=== PATIENT | female | born 1950 | race Caucasian/White ===

== ENCOUNTER 2017-12-14 08:40 | Inpatient (IN) ==
--- NOTE | 2017-12-13 21:56 | Discharge Summary ---
<Judi Null - Last Filed: 12/13/17 21:53> Date of Encounter: 12/13/17 - Discharge Diagnosis (1) Status post total hip replacement, right Priority: Primary Status: Acute (2) Arthritis of right hip Priority: Primary Status: Acute (3) HTN (hypertension) Priority: Secondary Status: Chronic Qualifiers: Hypertension type: essential hypertension Qualified Code(s): I10 - Essential (primary) hypertension (4) Venous stasis Priority: Secondary Status: Chronic (5) History of DVT (deep vein thrombosis) Priority: Secondary Status: Chronic (6) Anticoagulant long-term use Priority: Secondary Status: Chronic Comments: Resume Xarelto. (7) Hyperlipidemia Priority: Secondary Status: Chronic Qualifiers: Hyperlipidemia type: unspecified Qualified Code(s): E78.5 - Hyperlipidemia , unspecified - Hospital Course Hospital course: Ms. Patterson is a 67 year old female - Time Spent with Patient Total time spent providing and/or coordinating discharge services: - Discharge Medications Home Medications: Calcium Carb/D3/Magnesium/Zinc [Jovi Mag Zinc + D Tablet] 1 tab PO DAILY [History] Cetirizine HCl [Zyrtec] 10 mg PO DAILY PRN 11/03/15 [History] Cholecalciferol (Vitamin D3) [Vitamin D3] 2,000 unit PO DAILY 11/03/15 [History] [place]-3/Dha/Epa/Fish Oil [Fish Oil 1,000 mg Softgel] 1 each PO DAILY 11/03/15 [ History] Omeprazole [PriLOSEC] 20 mg PO DAILY PRN 11/03/15 [History] OxyCODONE Immed Rel [Roxicodone 5 MG] 5 mg PO Q6HR PRN 7 Days #28 tablet [Rx] Rivaroxaban [Xarelto] 20 mg PO DAILY 12/14/17 [History] Allergies/Adverse Reactions: 3 Allergy/AdvReac Type Severity Reaction Status Date / Time No Known Allergies Allergy Verified 12/14/17 09:32 Primary care physician: Sai Rashid MD - Patient Status Disposition: Home, Self-Care Condition: Good - Discharge Instructions Follow Up With: Sulaimna Burks MD [Partnered Physician] - 01/11/18 5:20 pm Judi Null PAC [Physician Wood Grinder] - 12/22/17 10:45 am Sai Rashid MD [Primary Care Provider] - 01/10/18 10:15 am Additional Instructions: Discharge Instructions: Total Hip Replacement Please call [facility] ([phone]), your Primary Care Physician, or report to the Emergency Room if you have any of the following symptoms: Nausea, vomiting, fever greater that 101.5, swelling, chest pain, shortness of breath, increased pain/redness/drainage/odor for your incision site, numbness/ tingling, or any other concerning symptoms. ACTIVITY:Weight-bearing as tolerated for 8 weeks with hip dislocation precautions that physical therapy taught you. You may progress as tolerated under the guidance of your physical therapist. You do not need to sleep with a pillow between your legs. You can also seep on the operative side or on your stomach. MEDICATIONS: Upon discharge resume your home medications. Take all the medications as prescribed. Take a stool softener if taking narcotic pain medications. Stool softeners are only effective if you drink enough fluids. Drink 6-8 glass of water or fluids a day, unless this is not allowed for another health problem. Despite using stool softeners, if you haven't had a bowel movement in 3 days, please switch to a gentle laxative. Gentle laxatives are sold over the counter. You should have a bowel movement within 24 hours, if not call the office. You will be discharged from the hospital with a prescription for pain medication. You are encouraged to decrease the use of narcotic pain medication as tolerated. Should you require a refill, please call the office. [facility] prescribes narcotic pain medication for only 4-6 weeks after surgery. If you require pain medication beyond this time period, you may be referred to your Primary Care Physician or to the Pain Clinic for further evaluation. Plan ahead for refills on pain medication as many narcotics either need to be picked up at the office or mailed. It is best to call 48-72 hours in advance of needing a prescription refill so you don't run out of medication. To help control the post-operative pain, you may take NSAIDs (Aleve,Advil, Motrin, ibuprofen, naprosyn) or Tylenol as prescribed on the bottle in addition to the pain medication. ANTICOAGULATION (blood thinners): Continue your Aspirin, Lovenox or Coumadin as prescribed to help prevent a blood clot in the leg or in the lungs. As long as your incision remains dry and you tolerate the NSAIDs (Aleve, Advil, Motrin, Ibuprofen, Naprosyn), it is OK to use the NSAIDS while you are taking your anticoagulation medication. Should your incision start to drain, stop the NSAID and contact our office. Common symptoms of blood clot in the legs include: localized pain, swelling, calf tenderness, redness or discoloration of the skin. Blood clot in the lung symptoms include: shortness of breath, rapid pulse, sweating, and chest pain that worsens with deep breathing, coughing up blood, lightheadedness, feelings of anxiety. If you experience any of these symptoms notify your physician immediately, go to the emergency room, or if having trouble breathing, call 911. WOUND CARE: Leave the dressing on for 7 to 10days. You may change the dressing if it is saturated greater than 50%. Do not get the dressing wet at anytime. Wash your hands with antibacterial soap, rinse and dry prior to any wound care. If you have aditya the visiting nurse or rehab facility can remove the stapes 10-14 days after surgery and place steri-strips across the wound. Leave the steri-strips in place until they fall off on their own. You may let water from the shower run on top of the steri-strips. If you do not have a visiting nurse or rehab facility, you will need to return to the office at 10-14 days for the aditya to be removed. If you have itching or redness around the dressing call the office. FOLLOW-UP: Please follow up with your surgeon in the orthopedic clinic in 6 weeks from the day of surgery. If you have aditya that need to be removed, you will need to come back to the office in 10-14 days from the day of surgery. <Sulaiman Burks - Last Filed: 12/15/17 07:51> Orders not resulted at time of discharge: Pending orders 12/14/17 00:01 XR hip complete RT [XR] Routine H/H [Hemoglobin and Hematocrit] [HEME] Routine Date of Encounter: 12/15/17 Time of Encounter: 07:51 - Discharge Diagnosis (1) Hyperlipidemia Priority: Secondary Status: Chronic Qualifiers: Hyperlipidemia type: unspecified Qualified Code(s): E78.5 - Hyperlipidemia , unspecified (2) Antiphospholipid antibody positive Priority: Secondary Status: Chronic (3) Status post total hip replacement, right Priority: Primary Status: Acute (4) Arthritis of right hip Priority: Primary Status: Chronic (5) HTN (hypertension) Priority: Secondary Status: Chronic Qualifiers: Hypertension type: essential hypertension Qualified Code(s): I10 - Essential (primary) hypertension (6) Venous stasis Priority: Secondary Status: Chronic (7) History of DVT (deep vein thrombosis) Priority: Secondary Status: Chronic (8) Anticoagulant long-term use Priority: Secondary Status: Chronic - Hospital Course Hospital course: Ms. Patterson is a 67 year old female Status post right total hip replacement The patient had an uneventful postoperative course. They received antibiotics and physical therapy and were discharged in stable condition. There will follow -up in the office in 2 weeks. - Time Spent with Patient Total time spent providing and/or coordinating discharge services: Primary care physician: Sai Rashid MD - Patient Status Functional capacity at discharge: uses cane/walker Overall status at discharge: patient is progressing back to baseline
--- NOTE | 2017-12-14 08:09 | Anesthesia Evaluation PreOp ---
Date of Encounter: 12/14/17 Time of Encounter: 09:31 - Past History Planned Operation: Right RUTH - Robotic Cardiac History: Other (10/2017: Elevated BP with chest tightness, positive stress, negative LHC, no symptoms since. 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 ) Anesthesia History: No Prior Anesthetic Complications, Past Anesthesia Alcohol Use: occasionally Drug use: none Medications and Allergies Calcium Carb/D3/Magnesium/Zinc [Jovi Mag Zinc + D Tablet] 1 tab PO DAILY [History] Cetirizine HCl [Zyrtec] 10 mg PO DAILY PRN 11/03/15 [History] Cholecalciferol (Vitamin D3) [Vitamin D3] 2,000 unit PO DAILY 11/03/15 [History] [place]-3/Dha/Epa/Fish Oil [Fish Oil 1,000 mg Softgel] 1 each PO DAILY 11/03/15 [ History] Omeprazole [PriLOSEC] 20 mg PO DAILY PRN 11/03/15 [History] OxyCODONE Immed Rel [Roxicodone 5 MG] 5 mg PO Q6HR PRN 7 Days #28 tablet [Rx] Rivaroxaban [Xarelto] 20 mg PO DAILY 12/14/17 [History] 3 Allergy/AdvReac Type Severity Reaction Status Date / Time No Known Allergies Allergy Verified 12/14/17 09:32 - Meds/Allergy Pre-op Review Medications Reviewed: Yes Allergies Reviewed: Yes Beta Blockers on Current Med List: No Anesthesia Results - Labs Laboratory Tests 12/07/17 12/07/17 12/07/17 10:10 10:10 10:10 Hgb 14.6 Hct 44.9 Plt Count 219 PT 19.1 H INR 1.8 APTT 39.4 H Sodium 136 Potassium 4.4 Carbon Dioxide 25 BUN 17 Creatinine 0.89 - Imaging EKG: report reviewed (SINUS RHYTHM LOW QRS VOLTAGE IN PRECORDIAL LEADS SEPTAL MYOCARDIAL INFARCTION, PROBABLY OLD) Additional studies: LE venous duplex 09/2017: Acute deep venous thrombosis is present in the left superficial femoral, popliteal, posterior tibial and peroneal veins. Acute superficial venous thrombosis is present in the left lesser saphenous vein. Normal contralateral common femoral vein. Treadmill stress test 10/2015: Perfusion imaging was positive for ischemia. There is a small (mild) size, mildly intense anteroapical reversible defect consistent with ischemia. Patient had chest pain with stress. Gated EF = 70%. The LV is not dilated. There is no evidence of TID. Exercise ECG was negative for ischemia. Exercise capacity was average. No arrhythmias noted with stress. [facility] 10/2015: Impressions: There is mild coronary artery disease. The left ventricle is normal and has normal contractility EF 55% Recommendations: Optimal medical therapy of patient's disease. Aggressive risk factor modification. Coronary Dominance: Right Lesion Findings/Interventions * Left Main Coronary Artery The LMCA is angiographically free of disease. * Left Anterior Descending There is a 20% stenosis in the Mid LAD. * Circumflex The Circumflex is angiographically free of disease and small in size. The 1st Marginal is angiographically free of disease. * Ramus The Ramus is angiographically free of disease. * Right Coronary Artery There is a 20% stenosis in the Mid RCA. The Right PDA is large in size. Anesthesia Exam O2 Sat Height 1.7 m Weight 86.183 kg BMI 30 Vital Signs Temp Pulse Resp BP Pulse Ox 97.8 F 85 18 136/91 96 12/14/17 08:57 12/14/17 08:57 12/14/17 08:57 12/14/17 08:57 12/14/17 08:57 NPO (# of Hours): >8 - HEENT Mallampati: I Teeth: Normal - Cardiac Rhythm: Regular - Pulmonary Breath Sounds: bilateral Clear Anesthesia Assess/Plan ASA Score: 2 Modified Idalmis Scale for Level of Consciousness: Cooperative, oriented, and tranquil Anesthetic Plan: General Monitoring Plan: Standard Monitors, A-Line (Possible) Recovery Plan: PACU Anes Supervising Prov Stmt: Patient informed and consented. Risks, benefits, and alternatives discussed. Patient wishes to proceed.
[2017-12-14] MEDS ORDERED: CeFAZolin Syr 2,000MG/20 ML 2,000 MG/20 ML SYRINGE IVPB ONE (08:53)
--- NOTE | 2017-12-14 09:05 | History & Physical Report ---
Date of Encounter: 12/14/17 Time of Encounter: 09:05 24 Hour HP Update - Instructions Instructions: If the History and Physical is less than 30 days old and was completed prior to A.M. admission and or procedure and has NOT been updated on calendar day of procedure please complete this update prior to performing procedure. - Update Patient reports changes in Medical Condition: No Changes in examination, assessment, or condition: No Changes in Medication: No Preop tests/diagnostics Reviewed: Yes Surgery Remains Indicated: Yes Consent for Planned Operative Procedure(s) Verified: Yes - Pre-Operative Checklist Preoperative Checklist Indicated: No Prophylactic Antibiotic Ordered: Yes Is VTE Prophylaxis Indicated?: Yes
[2017-12-14] MEDS ORDERED: Lidocaine -MPF 1% 2 ML VIAL ONE (09:24)
[2017-12-14] MEDS ORDERED: *HR* FentaNYL (PF) 100 MCG/2 ML VIAL ONE ×2 (09:32→10:29)
[2017-12-14] MEDS ORDERED: *HR* Propofol 200 MG/20 ML VIAL IVP ONE (09:32)
[2017-12-14] MEDS ORDERED: *HR* Methadone 10 MG TABLET PO ONE (09:39)
[2017-12-14] MEDS ORDERED: Famotidine 20 MG/2 ML VIAL IVP ONE (09:39)
[2017-12-14] MEDS ORDERED: Pregabalin 75 MG CAPSULE PO ONE (09:39)
[2017-12-14] MEDS ORDERED: *HR* Succinylcholine 200 MG/10 ML VIAL IVP ONE (09:53)
[2017-12-14] MEDS ORDERED: Lidocaine -MPF 2% 2 ML VIAL ONE (09:53)
[2017-12-14] MEDS: Ringers Solution, Lactated 1,000 ML IVC SCH ×3 (09:58→14:53)
[2017-12-14] MEDS ORDERED: Ethanol\\Acetic Acid\\Na Ace\\Ben 1,000 ML IRRIG.SOLN IR ONE (10:23)
[2017-12-14] MEDS ORDERED: Acetaminophen IV 1,000 MG/100 ML INFUS..BTL ONE (10:27)
[2017-12-14] MEDS ORDERED: *HR* OxyCODONE Immed Rel 5 MG TABLET PO PRN ×2 (10:32→13:24)
[2017-12-14] MEDS ORDERED: *HR* HYDROmorphone 2 MG TABLET PO PRN (10:32)
[2017-12-14] MEDS ORDERED: *HR* HYDROmorphone (PF) 1 MG/ML SYRINGE IVP PRN (10:32)
[2017-12-14] MEDS ORDERED: Ondansetron 4 MG/2 ML VIAL IVP ONE (10:32)
[2017-12-14] MEDS ORDERED: MORPHINE SUL Oral CONC 10 MG/0.5 ML ORAL.SYG SL PRN (10:32)
[2017-12-14] MEDS ORDERED: Lidocaine -MPF 4% 5 ML AMPUL ONE (10:36)
[2017-12-14] MEDS ORDERED: EPHEDrine 50 MG/ML VIAL ONE (11:10)
[2017-12-14] MEDS ORDERED: Dexamethasone 4 MG/ML VIAL ONE (11:17)
[2017-12-14] MEDS ORDERED: Ondansetron 4 MG/2 ML VIAL ONE (11:17)
--- NOTE | 2017-12-14 11:55 | Orthopedic Operative Note ---
Date of procedure: 12/14/17 Pre-op diagnosis: right hip arthritis Post-op diagnosis: same Procedure: Procedure: right Total Hip Replacment robotic-assisted Estimated blood loss: 200 cc Hardware: Metal and polyethylene replacement. Raad DM Cup: 58 cup Femoral 8 size stem Head:+4 head with Julieta Procedural Notes: Grade 4 arthritic changes femoral head acetabular socket, procedure performed with robotic assistance. Equal leg lengths as measured by CT Operative procedure: The patient was brought to the operating room and placed on the operating room table. After general anesthesia was administered the patient was placed in the lateral decubitus position with the operative leg up. All pressure points were padded appropriately and the head was stabilized in the neutral position. The operative extremity was prepped and draped in the sterile surgical fashion patient received IV antibiotic prior to skin incision. 3 Steinmann pins were placed in the iliac crest 3 cm proximal to the anterior superior iliac spine this was for the robotic-assisted sensor. This was done through a small 2 cm incision. A standard posterior approach is made to the operative hip, the incision was made through the skin and subcutaneous tissue hemostasis was obtained with Bovie cautery. Using careful sharp dissection the fascia was identified and incised exposing the external rotators. The femoral checkpoint was placed leg length was measured at this time utilizing robotic assistance. The external rotators were released off the greater trochanter and tagged with # 2 FiberWire suture. The capsule was T'd open and the hip was brought into internal rotation. Patient noted to have grade 4 arthritic changes femoral head. The femoral neck cut was made at the appropriate level roughly 10 mm proximal to the lesser trochanter aced on preoperative templating. An anterior capsulotomy was performed for the anterior retractor. Soft tissues removed from the acetabulum. Patient noted to have grade 4 arthritic changes acetabulum. The acetabulum checkpoint was placed confirmed. The acetabulum was then mapped with robotic assistance. Based on the preoperative plan the acetabulum was reamed in one step with a 57 reamer. The 58 acetabulum was impacted with robotic assistance and 40 degrees of abduction and 20 degrees of anteversion. The hip was brought back in to internal rotation and prepared with the steam box operator followed by the canal finder followed by the reaming process to a size 8/ 9 broaching process in 20 degrees anteversion. It was broached up to the appropriate size 8. Trial reduction revealed leg lengths close to normal. The femoral implant was impacted in place in 20 degrees of anteversion. Trial reduction found the hip to be stable with 8 head and Julieta. The trials were removed and the real implants were impacted in place. The hip was reduced, patient had robotic confirmed leg length of 8 mm longer than the contralateral side. The hip had excellent stability with forward flexion to 90 degrees adduction of 30 degrees and internal rotation of 60 degrees. The hip had no shuck. The hips after 2 minutes with a antibacterial solution. It was irrigated out with 2 L of pulse irrigation. The checkpoints were removed, Steinmann pins were removed. The hip was closed by the PA. The deep tissue was irrigated and closed deep with #1 PDS suture superficially with 0 PDS suture and skin was closed with Dermabond and zip tie. The patient was placed in a sterile dressing and abduction pillow. The patient was extubated and transferred to the recovery room in stable condition. Anesthesia: GETA Surgeon: Sulamian Burks Was there an assistant merchandiser present: Yes Patient Support Tech: Judi Null Estimated blood loss (cc): 200 Condition: stable Disposition: PACU
--- NOTE | 2017-12-14 12:49 | Anesthesia Evaluation Post Op ---
Date of Encounter: 12/14/17 Time of Encounter: 12:49 - Vital Signs Vital Signs: Vital Signs/O2 Sat, Most Current Temp Pulse Resp BP Pulse Ox 97.7 F 91 14 130/76 94 12/14/17 12:15 12/14/17 12:35 12/14/17 12:35 12/14/17 12:35 12/14/17 12:35 - Lungs Lungs: Clear Ascult./Percussion - Airway Airway: Non-obstructed - Cardiovascular Regular Rate - Mental Status Mental Status: Asleep with brisk response to light stimulation - Pain Pain Scale: 4 Pain Scale used: Numeric (1 - 10) - Nausea Vomiting Nausea Vomiting: Not Present - Hydration Hydration: Ice chips, Has not voided - Discharge PostOp Status: Transfer Patient to floor
[2017-12-14 12:55] LABS: Hematocrit 38.5 % (35.3-44.9)
[2017-12-14 12:56] LABS: Hemoglobin 12.9 g/dL (11.5-15.4)
[2017-12-14] MEDS ORDERED: Sennosides 8.6 MG TABLET PO PRN (13:24)
[2017-12-14] MEDS ORDERED: MOM Conc 10 ML UD.LIQ PO PRN (13:24)
[2017-12-14] MEDS ORDERED: traMADol 50 MG TABLET PO PRN (13:24)
[2017-12-14] MEDS ORDERED: Ondansetron 4 MG/2 ML VIAL IVP PRN (13:24)
[2017-12-14] MEDS ORDERED: Loratadine 10 MG TABLET PO PRN (13:24)
[2017-12-14] MEDS ORDERED: Temazepam 15 MG CAPSULE PO PRN (13:24)
[2017-12-14] MEDS ORDERED: *HR* OxyCODONE/APAP 5/325 TABLET PO PRN (13:24)
[2017-12-14] MEDS ORDERED: Naloxone 0.4 MG/ML INJ IVP PRN (13:24)
[2017-12-14] MEDS: Multivit/Ca/Min/Fe/FA 1 TAB TABLET PO SCH (14:53)
[2017-12-14] MEDS: ceFAZolin 2,000 MG in 0.9 % Sodium Chloride 100 ML IVPB SCH (15:51)
[2017-12-14] MEDS: Ascorbic Acid 500 MG TABLET PO SCH (15:52)
[2017-12-14] MEDS ORDERED: CeFAZolin Pre 2,000 MG/100 ML 2,000 MG/100 ML BAG IVPB SCH (16:00)
[2017-12-14] MEDS ORDERED: *HR* Rivaroxaban 10 MG TABLET PO ONE (16:28)
[2017-12-14] MEDS ORDERED: *HR* Promethazine 25 MG/ML VIAL IVP PRN (17:27)
[2017-12-15] MEDS: ceFAZolin 2,000 MG in 0.9 % Sodium Chloride 100 ML IVPB SCH (01:13)
[2017-12-15 03:01] LABS: Hematocrit 33.5 % (35.3-44.9)
[2017-12-15 03:07] LABS: Hemoglobin 11.1 g/dL (11.5-15.4)
[2017-12-15 03:21] LABS: BUN/Creatinine Ratio 26 (6-26); Blood Urea Nitrogen 21 mg/dL (8-23); Calcium 8.6 mg/dL (8.6-10.3); Carbon Dioxide 24 mEq/L (23-29); Chloride 103 mEq/L (98-107); Glucose 159 mg/dL (70-105); Osmolality,Calculated 286 (280-300); Sodium 135 mEq/L (136-145); eGFR For African Americans > 60 (> 60); eGFR For Non-African Americans > 60 (> 60)
[2017-12-15] MEDS: Ringers Solution, Lactated 1,000 ML IVC SCH (03:21)
[2017-12-15 06:51] VITALS: BP 98/57
--- NOTE | 2017-12-15 07:52 | Orthopedics Progress Note ---
Date of Encounter: 12/15/17 Time of Encounter: 07:52 - Assessment and Plan (1) Hyperlipidemia Current Visit: No Status: Chronic Qualifiers: Hyperlipidemia type: unspecified Qualified Code(s): E78.5 - Hyperlipidemia , unspecified (2) Antiphospholipid antibody positive Current Visit: No Status: Chronic (3) Status post total hip replacement, right Current Visit: No Status: Acute (4) Arthritis of right hip Current Visit: No Status: Chronic (5) HTN (hypertension) Current Visit: No Status: Chronic Qualifiers: Hypertension type: essential hypertension Qualified Code(s): I10 - Essential (primary) hypertension (6) Venous stasis Current Visit: No Status: Chronic (7) History of DVT (deep vein thrombosis) Current Visit: No Status: Chronic (8) Anticoagulant long-term use Current Visit: No Status: Chronic Subjective Interval history: Patient was seen this morning doing well without complaints. Afebrile vital signs stable. Operative extremity: Neurovascularly intact Dressing clean dry and intact Calves nontender Assessment and plan: Continue with postoperative care Hematocrit 33 discharged today Objective Vital signs: Vital Signs Temp Pulse Resp BP Pulse Ox 12/15/17 06:51 97.8 F 68 16 98/57 99 12/15/17 05:26 97.6 F 62 16 92/59 99 12/15/17 00:27 63 16 95/62 99 12/14/17 21:06 97.5 F L 63 16 106/69 98 12/14/17 21:00 98 12/14/17 15:52 97.6 F 70 16 104/71 100 12/14/17 14:47 97.6 F 62 14 105/68 99 12/14/17 14:15 97.6 F 73 12 109/69 100 12/14/17 13:35 97.7 F 88 12 112/73 98 12/14/17 13:15 97.9 F 74 16 118/73 98 12/14/17 13:05 78 14 117/76 98 12/14/17 12:55 84 12 123/70 95 12/14/17 12:45 97.2 F L 86 14 120/69 97 12/14/17 12:35 91 14 130/76 94 12/14/17 12:25 82 16 138/78 97 12/14/17 12:15 97.7 F 91 18 144/90 98 12/14/17 08:57 97.8 F 85 18 136/91 96 Intake and Output 12/14/17 12/14/17 12/15/17 15:59 23:59 07:59 Intake Total 850 / 850 100 / 100 1000 / 1000 Output Total 200 / 200 300 / 300 Balance 650 / 650 100 / 100 700 / 700 Intake: IV Fluids 850 / 850 100 / 100 1000 / 1000 Lactated Ringers 1,000 ML @ 75 850 / 850 1000 / 1000 mls/hr IVC .[id number] RANJAN Rx#: [id number] Ancef 2,000 MG In 0.9 % Sodium 100 / 100 Chloride 100 ML @ 200 mls/hr IVPB Q8H RANJAN Rx#:[id number] Output: Urine 300 / 300 Estimated Blood Loss 200 / 200 Other: # Voids 1 1 Weight 86.183 kg 94 kg Patient Weight 12/15/17 23:59 Weight 94 kg - Labs CBC & BMP: 12/15/17 00:59 12/15/17 00:59 Labs: Abnormal lab results Hgb 11.1 g/dL (11.5-15.4) L D 12/15/17 00:59 Hct 33.5 % (35.3-44.9) L 12/15/17 00:59 Sodium 135 mEq/L (136-145) L 12/15/17 00:59 Glucose 159 mg/dL (70-105) H 12/15/17 00:59 - VTE Documentation of Mechanical Device: Venous foot pump, device Consult Discharge Plan - Plan Additional Instructions: Discharge Instructions: Total Hip Replacement Please call [facility] ([phone]), your Primary Care Physician, or report to the Emergency Room if you have any of the following symptoms: Nausea, vomiting, fever greater that 101.5, swelling, chest pain, shortness of breath, increased pain/redness/drainage/odor for your incision site, numbness/ tingling, or any other concerning symptoms. ACTIVITY:Weight-bearing as tolerated for 8 weeks with hip dislocation precautions that physical therapy taught you. You may progress as tolerated under the guidance of your physical therapist. You do not need to sleep with a pillow between your legs. You can also seep on the operative side or on your stomach. MEDICATIONS: Upon discharge resume your home medications. Take all the medications as prescribed. Take a stool softener if taking narcotic pain medications. Stool softeners are only effective if you drink enough fluids. Drink 6-8 glass of water or fluids a day, unless this is not allowed for another health problem. Despite using stool softeners, if you haven't had a bowel movement in 3 days, please switch to a gentle laxative. Gentle laxatives are sold over the counter. You should have a bowel movement within 24 hours, if not call the office. You will be discharged from the hospital with a prescription for pain medication. You are encouraged to decrease the use of narcotic pain medication as tolerated. Should you require a refill, please call the office. [facility] prescribes narcotic pain medication for only 4-6 weeks after surgery. If you require pain medication beyond this time period, you may be referred to your Primary Care Physician or to the Pain Clinic for further evaluation. Plan ahead for refills on pain medication as many narcotics either need to be picked up at the office or mailed. It is best to call 48-72 hours in advance of needing a prescription refill so you don't run out of medication. To help control the post-operative pain, you may take NSAIDs (Aleve,Advil, Motrin, ibuprofen, naprosyn) or Tylenol as prescribed on the bottle in addition to the pain medication. ANTICOAGULATION (blood thinners): Continue your Aspirin, Lovenox or Coumadin as prescribed to help prevent a blood clot in the leg or in the lungs. As long as your incision remains dry and you tolerate the NSAIDs (Aleve, Advil, Motrin, Ibuprofen, Naprosyn), it is OK to use the NSAIDS while you are taking your anticoagulation medication. Should your incision start to drain, stop the NSAID and contact our office. Common symptoms of blood clot in the legs include: localized pain, swelling, calf tenderness, redness or discoloration of the skin. Blood clot in the lung symptoms include: shortness of breath, rapid pulse, sweating, and chest pain that worsens with deep breathing, coughing up blood, lightheadedness, feelings of anxiety. If you experience any of these symptoms notify your physician immediately, go to the emergency room, or if having trouble breathing, call 911. WOUND CARE: Leave the dressing on for 7 to 10days. You may change the dressing if it is saturated greater than 50%. Do not get the dressing wet at anytime. Wash your hands with antibacterial soap, rinse and dry prior to any wound care. If you have aditya the visiting nurse or rehab facility can remove the stapes 10-14 days after surgery and place steri-strips across the wound. Leave the steri-strips in place until they fall off on their own. You may let water from the shower run on top of the steri-strips. If you do not have a visiting nurse or rehab facility, you will need to return to the office at 10-14 days for the aditya to be removed. If you have itching or redness around the dressing call the office. FOLLOW-UP: Please follow up with your surgeon in the orthopedic clinic in 6 weeks from the day of surgery. If you have aditya that need to be removed, you will need to come back to the office in 10-14 days from the day of surgery. Referrals: Sulaiman Burks MD [Partnered Physician] - 01/11/18 5:20 pm Judi Null PAC [Physician Dining Service Inspector] - 12/22/17 10:45 am Sai Rashid MD [Primary Care Provider] - 01/10/18 10:15 am
[2017-12-15] MEDS ORDERED: ZINC PO SCH (09:00)
[2017-12-15] MEDS ORDERED: Cholecalciferol (D-3) 1,000 UNIT TABLET PO SCH (09:00)
[2017-12-15] MEDS ORDERED: D3 PO SCH (09:00)
[2017-12-15] MEDS ORDERED: MAGNESIUM PO SCH (09:00)
[2017-12-15] MEDS ORDERED: CALCIUM CARB PO SCH (09:00)
[2017-12-15] MEDS ORDERED: (Omega-3/Dha/Epa/Fish Oil [Fish Oil 1,000 Mg Softgel] PO SCH (09:00)
[2017-12-15] MEDS: Ascorbic Acid 500 MG TABLET PO SCH (09:34)
[2017-12-15] MEDS: Multivit/Ca/Min/Fe/FA 1 TAB TABLET PO SCH (09:35)
--- NOTE | 2017-12-15 16:22 | Event Note ---
Date of Encounter: 12/15/17 Time of Encounter: 16:20 PCR - POD#1 - Right THR Patient seen at bedside. Labs reviewed. Stable Pain control: adequate - changed to Ultram Participating in PT at home All questions and concerns addressed. Educated on use of incentive spirometer. Encouraged ambulation and proper hydration. Patient educated on post-operative restrictions and post-operative care. Addressed: Home with - continuity placed.
--- NOTE | 2017-12-15 16:23 | Physician Discharge Referral ---
Home Health/Hosp Referral Info Transfer to: Home Health Attending Provider: Provider in Charge Post Discharge: PCP - Diagnosis (1) Status post total hip replacement, right Status: Acute (2) Arthritis of right hip Status: Chronic (3) HTN (hypertension) Status: Chronic (4) Venous stasis Status: Chronic (5) History of DVT (deep vein thrombosis) Status: Chronic (6) Anticoagulant long-term use Status: Chronic (7) Hyperlipidemia Status: Chronic - Respiratory Orders None Smoking Cessation: Smoking cessation has been advised. For more information, call the [place] Tobacco Quit Line at 1-977-AUXN-NOW. - Diet/Nutrition Diet/Nutrition Orders: Regular - Activity Activity Orders: Up ad pinky, Ambulate, Chair, Walker - Services Needed Following services are medically necessary services: Nursing, Home Health Aide, Physical Therapy, Occupational Therapy Home Care Orders: Opsite dressing, leave intact until first post-operative visit. If dressing becomes >50% saturated, contact office, remove dressing and place appropriate dressing in its place. Do not allow for dressing to get wet. Zipline/[place] in place, plan to remove at post-operative day #14-16. Total Joint Precautions x 6 weeks Apply cold therapy wrap 3-6x/day for 20 minutes at a time. Encourage ambulation throughout the day Use Incentive spirometer 10x/hour. Elevate affected extremity above heart as tolerated. Brace: Wear hip abductor brace at night x 6 weeks.~ - Transfer Medications Home Medications: Calcium Carb/D3/Magnesium/Zinc [Jovi Mag Zinc + D Tablet] 1 tab PO DAILY [History] Cetirizine HCl [Zyrtec] 10 mg PO DAILY PRN 11/03/15 [History] Cholecalciferol (Vitamin D3) [Vitamin D3] 2,000 unit PO DAILY 11/03/15 [History] Lucas-3/Dha/Epa/Fish Oil [Fish Oil 1,000 mg Softgel] 1 each PO DAILY 11/03/15 [ History] Omeprazole [PriLOSEC] 20 mg PO DAILY PRN 11/03/15 [History] OxyCODONE Immed Rel [Roxicodone 5 MG] 5 mg PO Q6HR PRN 7 Days #28 tablet [Rx] Rivaroxaban [Xarelto] 20 mg PO DAILY 12/14/17 [History] Allergies/Adverse Reactions: 3 Allergy/AdvReac Type Severity Reaction Status Date / Time No Known Allergies Allergy Verified 12/14/17 09:32 Certification: Further, I certify that my clinical findings support that this patient is homebound (i.e. absences from home require considerable and taxing effort and are for medical reasons or amish services or infrequently or short duration when for other reasons) because: Homebound Reason: Post-surgery restriction and or conditions limit ability to leave home Attestation: My signature below is to certify that this patient is under my care and that I, or nurse practitioner, or a physician's speech and language assistant working with me, has a face-to -face encounter with this patient.
[2017-12-15] MEDS ORDERED: *HR* Rivaroxaban 10 MG TABLET PO SCH (18:00)
== END 2017-12-15 13:52 | disposition home or self-care (01) | DRG 470 ==
LOC: SAMDAY 08:40 → 3NENU 13:25
PROVIDERS: ADMIT Orthopaedic Surgery; ATTEND Orthopaedic Surgery